=== PATIENT | female | born 1930 | race Caucasian/White ===

== ENCOUNTER 2016-12-25 09:04 | Day surgery (SDC) | payer MEDICARE, BC ==
[~2016-12-25] VITALS: Ht 162.6 cm; Wt 74.8 kg
--- NOTE | ~2016-12-25 | EGD ---
EGD REPORT [facility] [address] [id number] NAME: MEGAN ROWLAND : [birth year] STATUS : REG [facility] [place] PAT#: [id number] AGE: 86 ADM/REG DATE : 12/25/16 MR#: [id number] REPORT SERV DATE: 12/25/16 DICTATED BY: NILS KUO DATE: 12/25/16 REPORT STATUS : Draft TRANSCRIBED BY: [facility] DATE: 12/25/16 [facility] Center Patient Name: Megan Rowland Date of : 1930 Attending MD: NILS KUO MD Procedure Date No Time: 12/25/2016 Procedure: Colonoscopy Indications: Abdominal pain in the left lower quadrant, Diverticula Referring MD: JOSÉ LUIS NERI MD Medicines: as per anesthesia Complications: No immediate complications. Procedure: Pre-Anesthesia Assessment: - ASA Grade Assessment: III - A patient with severe systemic disease. After I obtained informed consent, the scope was passed under direct vision. Throughout the procedure, the patient's blood pressure, pulse, and oxygen saturations were monitored continuously. The PCF [id number] was introduced through the anus and advanced to the cecum, identified by appendiceal orifice and ileocecal valve. The colonoscopy was somewhat difficult due to multiple diverticula in the colon, significant looping and a tortuous colon. The patient tolerated the procedure. The quality of the bowel preparation was adequate to identify polyps. Findings: The perianal and digital rectal examinations were normal. Multiple small and large-mouthed diverticula were found in the sigmoid colon, in the descending colon, in the transverse colon and in the ascending colon. Internal hemorrhoids were found during endoscopy and were mild. Impression: - Diverticulosis in the sigmoid colon, in the descending colon, in the transverse colon and in the ascending colon. - Internal hemorrhoids. Recommendation: - Continue present medications. Procedure Code(s): --- Professional --- 33222, Colonoscopy, flexible, proximal to splenic flexure; diagnostic, with or without collection of specimen(s) by brushing or washing, with or without colon decompression (separate procedure) EGD REPORT [facility] [address] [id number] NAME: MEGAN ROWLAND : [birth year] STATUS : REG [facility]#: [id number] AGE: 86 ADM/REG DATE : 12/25/16 MR#: [id number] REPORT SERV DATE: 12/25/16 DICTATED BY: NILS KUO. DATE: 12/25/16 REPORT STATUS : Draft TRANSCRIBED BY: [employer] DATE: 12/25/16 Diagnosis Code(s): --- Professional --- K64.8, Other hemorrhoids K57.30, Diverticulosis of large intestine without perforation or abscess without bleeding R10.32, Left lower quadrant pain CPT copyright 2013 [employer]. All rights reserved. The codes documented in this report are preliminary and upon pantry chef review may be revised to meet current compliance requirements. NILS KUO MD 12/25/2016 11:58 AM This report has been signed electronically. Number of Addenda: 0 Note Initiated On: 12/25/2016 11:12 AM Scope Withdrawal Time 0 hours 6 minutes 5 seconds [address] [facility] [place] [address]
--- NOTE | ~2016-12-25 | EGD ---
EGD REPORT [facility] [address] [place] [address] NAME: MEGAN ROWLAND : [birth year] STATUS : REG [facility] [place] PAT#: [id number] AGE: 86 ADM/REG DATE : 12/25/16 MR#: [id number] REPORT SERV DATE: 12/25/16 DICTATED BY: NILS KUO DATE: 12/25/16 REPORT STATUS : Draft [facility]IBED BY: [facility] DATE: 12/25/16 Endoscopy Center Patient Name: Megan Rowland Date of : 1930 Attending MD: NILS KUO MD Procedure Date No Time: 12/25/2016 Procedure: Upper GI endoscopy Indications: Abdominal pain in the right upper quadrant Referring MD: JOSÉ LUIS NERI MD Medicines: as per anesthesia Complications: No immediate complications. Procedure: Pre-Anesthesia Assessment: - ASA Grade Assessment: III - A patient with severe systemic disease. After obtaining informed consent, the endoscope was passed under direct vision. Throughout the procedure, the patient's blood pressure, pulse, and oxygen saturations were monitored continuously. The GIF H190 [id number] was introduced through the mouth, and advanced to the third part of duodenum. The upper GI endoscopy was accomplished without difficulty. The patient tolerated the procedure. Findings: The examined esophagus was normal. Localized moderate inflammation characterized by adherent blood and erythema was found in the gastric antrum. Biopsies were taken with a cold forceps for histology. The cardia and gastric fundus were normal on retroflexion. Few superficial duodenal ulcers were found in the first part of the duodenum and in the second part of the duodenum. The largest lesion was 4 mm in largest dimension. Impression: - Normal esophagus. - Gastritis. Biopsied. - Multiple duodenal ulcers. Recommendation: - Await pathology results. - Use Prilosec (omeprazole) 40 mg PO daily. Procedure Code(s): --- Professional --- 21747, Esophagogastroduodenoscopy, flexible, transoral; with biopsy, single or multiple Diagnosis Code(s): --- Professional --- EGD REPORT [address] [place] [facility] [place]. [id number] NAME: MEGAN ROWLAND : [birth year] STATUS : REG [facility] [place] PAT#: [id number] AGE: 86 ADM/REG DATE : 12/25/16 MR#: [id number] REPORT SERV DATE: 12/25/16 DICTATED BY: NILS KUO. DATE: 12/25/16 REPORT STATUS : Draft TRANSCRIBED BY: [employer] DATE: 12/25/16 K29.70, Gastritis, unspecified, without bleeding K26.9, Duodenal ulcer, unspecified as acute or chronic, without hemorrhage or perforation R10.11, Right upper quadrant pain CPT copyright 2013 [employer]. All rights reserved. The codes documented in this report are preliminary and upon remote coders review may be revised to meet current compliance requirements. NILS KUO MD 12/25/2016 11:36 AM This report has been signed electronically. Number of Addenda: 0 Note Initiated On: 12/25/2016 11:16 AM Scope Withdrawal Time 0 hours 0 minutes [address] [place], [place] [address] [address]
[~2016-12-25 09:04] MED LIST: ALLEGRA180 PO; ASAB PO; B-COMPLE6 OR; C25 PO; C5 PO; CARDCD180 PO; CLARIT10 PO; COREG6 PO; COUMADIN3 MG PO; CRANBERRY1 TAB OR; DIOVAN HC1 PO; DIOVAN HCT PO; IRON PO; KLOR-CON 1010 MEQ PO; KLOR-CON M2020 MEQ PO; L20 PO; L40 PO; LIBRAX PO; LOVENOX80 SC; OS500+D PO; P125 PO; PROTONIX PO; RYTHMOL150 MG PO; TOPXL50 PO; VITAMIN A8000 UNIT PO; VITAMIN B PO; VITAMINS; VITC500 PO; VITE PO; VITE1000 PO
[2016-12-25 09:36] LABS: INTERNATIONAL NORMAL RATI 1.2 UNITS (-); PROTIME (NOT ORD) 15.2 SEC (12.0-14.5)
== END 2016-12-25 23:59 | disposition home or self-care (01) ==
LOC: DMU 09:04
PROVIDERS: Anesthesiology; Internal Medicine Gastroenterology
PROC: 0DB68ZX Excision of Stomach, Via Natural or Artificial Opening Endoscopic, Diagnostic (ICD-10-PCS; principal; 2016-12-25 11:00)
PROC: 0DJD8ZZ Inspection of Lower Intestinal Tract, Via Natural or Artificial Opening Endoscopic (ICD-10-PCS; 2016-12-25 11:00)
DX: K57.30 Diverticulosis of large intestine without perforation or abscess without bleeding (principal); K26.9 Duodenal ulcer, unspecified as acute or chronic, without hemorrhage or perforation; K64.8 Other hemorrhoids; I10 Essential (primary) hypertension; I48.91 Unspecified atrial fibrillation; K21.9 Gastro-esophageal reflux disease without esophagitis; Z79.01 Long term (current) use of anticoagulants; Z96.653 Presence of artificial knee joint, bilateral; Z88.2 Allergy status to sulfonamides; Z88.1 Allergy status to other antibiotic agents; Z91.040 Latex allergy status; Z88.8 Allergy status to other drugs, medicaments and biological substances; Z90.89 Acquired absence of other organs; Z90.710 Acquired absence of both cervix and uterus; Z95.0 Presence of cardiac pacemaker; Z98.41 Cataract extraction status, right eye; Z98.42 Cataract extraction status, left eye; Z96.1 Presence of intraocular lens; Z98.890 Other specified postprocedural states; Z79.899 Other long term (current) drug therapy
CPT/HCPCS: 85610; 88305; J0290; J1580